=== PATIENT | female | born 1955 | race Caucasian/White ===

== ENCOUNTER 2016-10-08 19:01 | Inpatient (IN) | payer OTHER ==
[~2016-10-08] VITALS: Ht 175.3 cm; Wt 77.1 kg
--- NOTE | ~2016-10-08 | S ---
[facility] [place] [address] SURGICAL PATH RPT PROCEDURE Name: NICOLETTE VÁSQUEZ NICKOLAS Room #: 316-P ADM IN M.R.#: [id number] Admission: 10/08/16 Date of : 51 Discharge: Report #: [id number] Path Case #: [id number] PATHOLOGY REPORT COLLECTION DATE: 10/09/2016 RECEIVED DATE: 10/09/2016 SUBMITTING PHYS: Dr. Ann Marie Soto OTHER PHYS: Dr. Zehra Dao SPECIMEN(S) RECEIVED: A.Peripheral smear * * * * * * * * * * * * FINAL DIAGNOSIS: Peripheral blood smear: - Mild normocytic anemia and mild leukopenia / neutropenia. (see comment). COMMENT: Overall, the peripheral blood has mild normocytic anemia and mild leukopenia / neutropenia. Leukopenia is also partially due to low normal values of multiple cellular subsets. The platelet count is within the normal reference range. The etiology of the findings is unclear based entirely on slide review. Potential causes of normocytic anemia include anemia of chronic disease, treated and/or compensated by vitamin and mineral deficiencies, acute blood loss and dilutional. Potential causes of leukopenia / neutropenia include infections, drug reactions and other inflammatory states. Correlation with clinical history and additional laboratory data is recommended. (CLW:leyda; 10/09/2016) PATHOLOGIST: Dora Joiner M.D. REPORT ELECTRONICALLY SIGNED BY: Dora Joiner M.D. DATE/TIME: 10/09/2016 14:17 * * * * * * * * * * * * MICROSCOPIC DESCRIPTION: CBC Data (10/09/16): WBC 3,300 /uL, RBC 3.53, hemoglobin 10.9 g/dL, hematocrit 31.7%, MCV 90.0 fL, MCH 30.8 pg, MCHC 34.2 g/dL, RDW 13.3%. Platelet count 202,000 /uL. Manual white blood cell differential (10/08/16): segs 59%, lymphs 29%, monos 9%, and eos 3%. Peripheral Blood Smear: Cytomorphological examination of the Alvarez's stained peripheral blood smear confirms the provided data. Red blood cells show mild normocytic anemia and are without significant anisopoikilocytosis. [address] [address] SURGICAL PATH RPT PROCEDURE Name: VÁSQUEZNICOLETTE NICKOLAS Room #: 316-P ADM IN M.R.#: [id number] Admission: 10/08/16 Date of : 51 Discharge: Report #: [id number] Path Case #: [id number] No schistocytes or microspherocytes are seen. White blood cells are mildly decreased in number. They are predominantly segmented neutrophils and are without significant dyspoiesis or significant left shift. Lymphocytes are predominantly small, round, and mature appearing with condensed chromatin and scant cytoplasm with admixed large granular lymphocytes. On scanning, no markedly atypical lymphoid cells are seen. Monocytes are mature. Platelets are adequate in number and mainly normal in morphology with rare larger platelets noted. GROSS PATHOLOGY: Received are two Alvarez stained peripheral blood smears, labeled, Nicolette Vásquez. CLINICAL HISTORY: This is a 60-year-old woman with anemia and leukopenia. Morphologic review of the peripheral blood smears requested by the patient's physician. INITIAL CPT CODE(S): A; 74172 Professional services performed by [facility] at [place] [address] [address], [place] [address] Technical services performed by [facility] at [address] [place] [address], [address], [place] [address]. [facility] [address] [place] [address] PHONE: [phone] DIRECTOR: Johnson Costello M.D. * * * END OF REPORT * * *
[~2016-10-08 19:01] MED LIST: ACYCLOVIR 400400 MG PO; MACROBID 100 M100 M1 PO; NEURONTIN 300300 M1 PO; NEXIUM40 MG PO; PROPRANOLOL 1010 MG PO; PROZAC20 MG PO; REQUIP XL2 MG PO; RESTORIL30 MG PO; TESSALON PERLE100 MG PO; VALIUM5 MG PO
[2016-10-08 19:04] VITALS: BP 131/60
[2016-10-08] MEDS ORDERED: FAMCICLOVIR500 MG PO (19:09)
[2016-10-08 19:31] LABS: HEMATOCRIT 35.8 % (37.0-47.0); HEMOGLOBIN 12.1 gm/dL (12.0-15.0); MANUAL DIFF YES; MCH 30.5 pg (26.0-34.0); MCHC 33.8 g/dL (28.0-37.0); MCV 90.2 fL (80.0-100.0); PLATELET COUNT 228 thou/uL (150-400); RBC 3.97 mil/uL (4.20-5.00); RDW 13.7 % (10.5-14.5)
[2016-10-08 19:40] LABS: CREATININE 1.4 mg/dL (0.6-1.0); POTASSIUM 4.2 mmol/L (3.5-5.1)
[2016-10-08 19:53] LABS: ABSOLUTE NEUTROPHILS 2.4 thou/uL (1.4-8.2); TOTAL CELL COUNT 100
[2016-10-08 19:54] LABS: ANISOCYTOSIS 1+; POLYCHROMASIA OCCASIONAL
[2016-10-08 20:46] LABS: ALBUMIN 3.5 g/dL (3.4-5.0); ALKALINE PHOSPHATASE 64 U/L (46-116); SGOT 26 U/L (15-37); SGPT 24 U/L (30-65); TOTAL BILIRUBIN 0.2 mg/dL (<0.1-1.0); TOTAL PROTEIN 7.3 g/dL (6.4-8.2)
[2016-10-08 20:52] LABS: APTT 24.1 Seconds (24.5-32.8); FIBRINOGEN 406.5 mg/dL (210-360); PROTIME 9.1 Seconds (9.3-11.4)
[2016-10-08 20:55] LABS: DIRECT BILIRUBIN < 0.1 mg/dL (<0.1-0.3)
[2016-10-08 21:26] LABS: URINE BILIRUBIN NEGATIVE (Negative); URINE BLOOD NEGATIVE (Negative); URINE COLOR YELLOW; URINE GLUCOSE-RANDOM* NEGATIVE (Negative); URINE KETONES NEGATIVE (Negative); URINE NITRITE NEGATIVE (Negative); URINE PROTEIN (DIPSTICK) NEGATIVE (Negative); URINE UROBILINOGEN 0.2 E.U./dl (0.2-1.0)
[2016-10-08 21:33] LABS: BACTERIA 1-9 Few /HPF (None Seen); CASTS None Seen /LPF (None Seen); CRYSTALS None Seen /LPF (None Seen); SQUAMOUS 0-3 Few /LPF (0-3); URINE RBC None Seen /HPF (0-2); URINE WBC 0-5 Rare /HPF (0-5)
[2016-10-08 21:44] VITALS: BP 126/68
[2016-10-08 22:31] VITALS: BP 120/66
[2016-10-08 22:50] VITALS: BP 125/62
[2016-10-08] MEDS ORDERED: LEVOTHYROXIN0.125 M1 PO (23:06)
[2016-10-09 04:43] LABS: ABSOLUTE RETIC COUNT 0.0544 10^6/uL; OBSERVED RETIC COUNT 1.55 % (0.6-2.6)
[2016-10-09 04:44] LABS: HEMATOCRIT 31.7 % (37.0-47.0); HEMOGLOBIN 10.9 gm/dL (12.0-15.0); MCH 30.8 pg (26.0-34.0); MCHC 34.2 g/dL (28.0-37.0); RBC 3.53 mil/uL (4.20-5.00); RDW 13.3 % (10.5-14.5); WBC 3.3 thou/uL (4.0-11.0)
[2016-10-09 04:50] VITALS: BP 108/71
[2016-10-09 05:00] LABS: ALBUMIN 2.7 g/dL (3.4-5.0); CALCIUM 8.5 mg/dL (8.5-10.1); CREATININE 1.3 mg/dL (0.6-1.0); POTASSIUM 4.7 mmol/L (3.5-5.1); TOTAL BILIRUBIN 0.3 mg/dL (<0.1-1.0)
[2016-10-09 07:16] VITALS: BP 120/69
[2016-10-09 09:15] LABS: % SATURATION 23 % (20-39); IRON 64 ug/dL (50-170); TIBC 278 ug/dL (250-450); UIBC 214 ug/dL
[2016-10-09 09:46] LABS: FOLIC ACID 5.4 ng/mL (8.6-58.9); TSH 0.044 uIU/mL (0.358-3.740)
[2016-10-09 16:05] VITALS: BP 120/66
[2016-10-09] MEDS ORDERED: MEDROL DOSPAK21 TA1 PO (16:24)
[2016-10-09 16:49] VITALS: BP 120/66
[2016-10-09 22:11] LABS: HIV ANTIBODY Non Reactive (Non Reactive)
[2016-10-12 15:08] LABS: EBV QUANT Negative (Negative)
[2016-10-13 11:09] LABS: A/G RATIO 1.2 (0.7-1.7); ALBUMIN 2.9 g/dL (2.9-4.4); ALPHA 1 0.2 g/dL (0.0-0.4); ALPHA 2 0.7 g/dL (0.4-1.0); BETA 0.9 g/dL (0.7-1.3); GAMMA 0.7 g/dL (0.4-1.8); M-SPIKE Not Observed g/dL (Not Observed)
== END 2016-10-09 17:40 | disposition home or self-care (01) | DRG 813 ==
LOC: ER 19:01 → EROBS 21:19 → 3N 21:19
PROVIDERS: Emergency Medicine; Internal Medicine Hematology & Oncology; Nurse Practitioner Family
DX: R23.3 Spontaneous ecchymoses (principal); N39.0 Urinary tract infection, site not specified; N17.9 Acute kidney failure, unspecified; N18.9 Chronic kidney disease, unspecified; E03.9 Hypothyroidism, unspecified; D72.819 Decreased white blood cell count, unspecified; D64.9 Anemia, unspecified; G25.81 Restless legs syndrome; Z96.651 Presence of right artificial knee joint; Z90.710 Acquired absence of both cervix and uterus; Z88.5 Allergy status to narcotic agent; Z88.0 Allergy status to penicillin; Z82.49 Family history of ischemic heart disease and other diseases of the circulatory system
CPT/HCPCS: 10094

== ENCOUNTER 2017-07-27 15:29 | Inpatient (IN) | payer OTHER ==
[~2017-07-27] VITALS: Ht 175.3 cm; Wt 84.8 kg
--- NOTE | ~2017-07-27 | EKG ---
[address] [address] ELECTROCARDIOGRAM REPORT Name: MIKHAIL BESS Room #: 422-P ADM IN M.R.#: [id number] Admission: 07/27/17 Attend Phys: Juan Ochoa DO Discharge: Date of : 51 Report #: [id number] THIS REPORT FOR: //name// [facility] Test Date: 2017-07-29 Test Time: 18:49:26 Pat Name: MIKHAIL BESS Department: Room: 422 P Gender: F Powder Expert: Maribel GOMES : 1955 Requested By: Tono Coulter Order Number: [id number] MD: Bret Coley Measurements Intervals [place] Rate: 56 P: 56 PA: 177 QRS: 50 QRSD: 79 T: 39 QT: 451 QTc: 436 Interpretive Statements Sinus rhythm Low voltage, precordial leads Compared to ECG 08/26/2015 14:41:15 Low QRS voltage now present Electronically Signed On 07-29-2017 22:00:12 CDT by Bret Coley [email or web address] <ELECTRONICALLY SIGNED> By: Bret Coley MD 07/29/172199 48 48 Bret Coley MD /[facility]
--- NOTE | ~2017-07-27 | HC ---
[facility] [place] [address] CONSULTATION Name: BESSMIKHAIL Room #: 422-P ADM IN M.R.#: [id number] Admission: 07/27/17 Attend Phys: Juan Ochoa DO Discharge: Date of : 51 Report #: [id number] THIS REPORT FOR: //name// CC: Juan Ochoa Arnel Angela DATE OF SERVICE: 07/27/2017 REFERRING PROVIDER: Dr. Juan Ochoa. REASON FOR CONSULT: Abdominal pain. HISTORY OF PRESENT ILLNESS: The patient is a 61-year-old female who presented with a 3-day history of left lower quadrant abdominal pain with fevers, chills and nausea. The patient presented for evaluation, whereby laboratories and a CT scan of the abdomen and pelvis were obtained. The patient's labs were all within normal limits and her CT scan showed focal inflammatory fat stranding along the anterior margin of the sigmoid colon concerning for epiploic appendagitis fat infarct or sigmoid diverticulitis. For that reason, the hospitalist service has admitted the patient and I am asked to evaluate from a surgical standpoint. PAST MEDICAL AND SURGICAL HISTORY: Essential tremor, DJD, prior shingles and mono. She has had a hysterectomy and thyroidectomy. HOME MEDICATIONS: Synthroid, Valium, Nexium, propranolol, Requip, famciclovir, melatonin. ALLERGIES: MORPHINE AND PENICILLIN. FAMILY HISTORY: Reviewed and noncontributory. SOCIAL HISTORY: The patient does not utilize tobacco, alcohol or illicit drugs. REVIEW OF SYSTEMS: GENERAL: The patient denies nocturnal fevers or chills. HEENT: No change in vision, change in hearing. NECK: No swelling or difficulty swallowing. HEART: No chest pain, palpitations. LUNGS: No cough or shortness of breath. ABDOMEN: No nausea, no vomiting. GENITOURINARY: No dysuria or hematuria. ENDOCRINE: No polyuria, polydipsia. HEMATOLOGIC: No history of bleeding or easy bruising. EXTREMITIES: No history weakness or limited range of motion. NEUROLOGIC: No history of syncope or near syncopal episodes. [facility] [place] [address] [place] [address] CONSULTATION Name: BESSMIKHAIL [facility] Room #: 422-P [facility] IN M.R.#: [id number] Admission: 07/27/17 Attend Phys: Juan Ochoa DO Discharge: Date of : 51 Report #: [id number] SKIN AND INTEGUMENT: No history of abnormal lesions or moles. PSYCHIATRIC: No history of anxiety or depression. PHYSICAL EXAMINATION: VITAL SIGNS: Temperature 98.5, pulse 82, respirations 20, blood pressure 107/64. 5 feet 9 inches tall and weighs 190 pounds. GENERAL: Alert, in no acute distress. HEENT: Normocephalic, atraumatic. Pupils equal, round, reactive to light. NECK: Supple, without lymphadenopathy. Trachea midline. HEART: Regular rate and rhythm. LUNGS: Clear to auscultation bilaterally. ABDOMEN: Soft, nondistended, minimally tender to palpation left lower quadrant, but no guarding, rebound or peritoneal signs or symptoms. GENITOURINARY: Normal external female genitalia. EXTREMITIES: No clubbing, cyanosis or edema. NEUROLOGIC: Cranial nerves 2-12 are grossly intact. PSYCHIATRIC: Normal mood and affect. SKIN AND INTEGUMENT: No abnormal lesions or moles. LABORATORY AND X-RAY DATA: CBC shows white blood cell count of 5500, hemoglobin 14.4, platelets 259,000. Creatinine is 1.5. Liver function enzymes are normal. Lactic acid normal at 1.1. Urinalysis negative. CT scan of the abdomen and pelvis as per HPI shows epiploic appendagitis versus fat infarction versus sigmoid diverticulitis. ASSESSMENT AND PLAN: A 61-year-old female with left lower quadrant abdominal pain and normal laboratories with a CT scan showing what I believe likely be epiploic appendagitis or infarction of one of the fatty appendages off of the colon. Less likely would be early sigmoid diverticulitis. The patient has been initiated on IV fluids and IV antibiotics per the primary service and I will initiate Toradol 30 mg IV every 6 hours for an anti-inflammatory benefit. I suspect her slightly elevated creatinine is secondary to dehydration. If this is truly epiploic appendagitis, it is a limited medical issue treated with NSAIDs and usually resolves within 2-3 days' time. Nonetheless, I sincerely appreciate this consult and I will follow closely and leave any further recommendations in the patient's chart as appropriate. <ELECTRONICALLY SIGNED> By: Carmenza Kim MD, FACS 07/28/17 [id number] Carmenza Kim MD, FACS /nt
[~2017-07-27 15:29] MED LIST changes: +FAMCICLOVIR500 MG PO; +LEVOTHYROXIN0.125 M1 PO; +MEDROL DOSPAK21 TA1 PO
[2017-07-27 15:31] VITALS: BP 128/83
[2017-07-27 16:08] LABS: HEMATOCRIT 42.6 % (37.0-47.0); HEMOGLOBIN 14.4 gm/dL (12.0-15.0); MCH 30.2 pg (26.0-34.0); MCHC 33.8 g/dL (28.0-37.0); MCV 89.3 fL (80.0-100.0); PLATELET COUNT 259 thou/uL (150-400); RBC 4.76 mil/uL (4.20-5.00); RDW 14.6 % (10.5-14.5); WBC 5.5 thou/uL (4.0-11.0)
[2017-07-27] MEDS ORDERED: MELATONIN5 M1 PO (16:17)
[2017-07-27] MEDS ORDERED: TYLENOL PM EX-1 EACH PO (16:17)
[2017-07-27 16:22] LABS: CALCIUM 9.4 mg/dL (8.5-10.1); CREATININE 1.5 mg/dL (0.6-1.0)
[2017-07-27 16:27] LABS: ALBUMIN 3.4 g/dL (3.4-5.0); TOTAL BILIRUBIN 0.5 mg/dL (<0.1-1.0); TOTAL PROTEIN 7.6 g/dL (6.4-8.2)
[2017-07-27 16:44] LABS: PLATELET ESTIMATE NORMAL
[2017-07-27 17:36] LABS: URINE BILIRUBIN NEGATIVE (Negative); URINE BLOOD 1+ (Negative); URINE CLARITY CLEAR; URINE COLOR YELLOW; URINE GLUCOSE-RANDOM* NEGATIVE (Negative); URINE KETONES NEGATIVE (Negative); URINE NITRITE-REFLEX NEGATIVE (Negative); URINE PROTEIN (DIPSTICK) NEGATIVE (Negative); URINE SPECIFIC GRAVITY <= 1.005 (1.005-1.035); URINE UROBILINOGEN 0.2 E.U./dl (0.2-1.0)
[2017-07-27 17:37] LABS: URINE LEUKOCYTES-REFLEX TRACE (Negative)
[2017-07-27 17:48] LABS: BACTERIA-REFLEX None Seen /HPF (None Seen); CASTS None Seen /LPF (None Seen); CRYSTALS None Seen /LPF (None Seen); SQUAMOUS 0-3 Few /LPF (0-3); URINE RBC 0-2 Rare /HPF (0-2); URINE WBC-REFLEX 6-15 Few /HPF (0-5)
[2017-07-27 17:50] VITALS: BP 146/84
[2017-07-27 18:46] VITALS: BP 107/64
[2017-07-27 19:26] VITALS: BP 107/61
[2017-07-27] MEDS ORDERED: EFFEXOR XR75 MG PO ×2 (21:01→21:02)
[2017-07-27] MEDS ORDERED: TRAZODONE HCL100 MG PO (21:04)
[2017-07-28 03:55] VITALS: BP 97/56
[2017-07-28 05:58] LABS: HEMATOCRIT 34.3 % (37.0-47.0); MCH 30.1 pg (26.0-34.0); MCHC 33.9 g/dL (28.0-37.0); MCV 88.9 fL (80.0-100.0); PLATELET COUNT 209 thou/uL (150-400); RBC 3.86 mil/uL (4.20-5.00); RDW 14.3 % (10.5-14.5)
[2017-07-28 06:00] LABS: HEMOGLOBIN 11.6 gm/dL (12.0-15.0)
[2017-07-28 06:10] LABS: CALCIUM 8.5 mg/dL (8.5-10.1); CREATININE 1.3 mg/dL (0.6-1.0); MAGNESIUM 2.1 mg/dL (1.8-2.4)
[2017-07-28 07:06] VITALS: BP 94/55
[2017-07-28 07:28] LABS: ABSOLUTE NEUTROPHILS 2.1 thou/uL (1.4-8.2); ATYPICAL LYMPHS 1 %
[2017-07-28 08:30] VITALS: BP 94/55
[2017-07-28 19:25] VITALS: BP 98/58
[2017-07-29 04:35] VITALS: BP 97/52
[2017-07-29 05:50] LABS: ABSOLUTE NEUTROPHILS 2.3 thou/uL (1.4-8.2); BASOPHILS 0.5 % (0.0-2.0); EOSINOPHILS 0.6 % (0.0-3.0); HEMATOCRIT 34.5 % (37.0-47.0); HEMOGLOBIN 11.4 gm/dL (12.0-15.0); LYMPHOCYTES 33.9 % (24.0-44.0); MCH 29.6 pg (26.0-34.0); MCV 89.7 fL (80.0-100.0); MONOCYTES 11.2 % (1.0-8.0); PLATELET COUNT 219 thou/uL (150-400); POLYS 53.8 % (36.0-66.0); RBC 3.85 mil/uL (4.20-5.00); RDW 14.2 % (10.5-14.5); WBC 4.2 thou/uL (4.0-11.0)
[2017-07-29 06:00] LABS: CREATININE 1.5 mg/dL (0.6-1.0)
[2017-07-29 08:46] VITALS: BP 89/43
[2017-07-29 09:22] VITALS: BP 89/43
[2017-07-29 16:38] VITALS: BP 102/58
[2017-07-29 19:29] VITALS: BP 105/57
[2017-07-30 03:57] VITALS: BP 100/55
[2017-07-30 05:53] LABS: HEMATOCRIT 32.6 % (37.0-47.0); HEMOGLOBIN 10.9 gm/dL (12.0-15.0); MCH 29.9 pg (26.0-34.0); MCHC 33.3 g/dL (28.0-37.0); MCV 89.9 fL (80.0-100.0); PLATELET COUNT 203 thou/uL (150-400); RBC 3.63 mil/uL (4.20-5.00); RDW 14.4 % (10.5-14.5); WBC 3.4 thou/uL (4.0-11.0)
[2017-07-30 06:24] LABS: ALBUMIN 2.5 g/dL (3.4-5.0); CALCIUM 8.3 mg/dL (8.5-10.1); CREATININE 1.4 mg/dL (0.6-1.0); MAGNESIUM 2.1 mg/dL (1.8-2.4); POTASSIUM 4.9 mmol/L (3.5-5.1); TOTAL BILIRUBIN 0.2 mg/dL (<0.1-1.0)
[2017-07-30 06:54] LABS: ABSOLUTE NEUTROPHILS 1.8 thou/uL (1.4-8.2); PLATELET ESTIMATE NORMAL
[2017-07-30 07:17] VITALS: BP 103/50
[2017-07-30 08:30] VITALS: BP 103/50
[2017-07-30 15:48] VITALS: BP 124/58
[2017-07-30] MEDS ORDERED: CIPRO500 MG PO (18:14)
[2017-07-30] MEDS ORDERED: FLAGYL500 MG PO (18:14)
[2017-07-30 20:00] VITALS: BP 103/52
[2017-07-31 04:00] VITALS: BP 88/45
[2017-07-31 05:29] LABS: ABSOLUTE NEUTROPHILS 7.8 thou/uL (1.4-8.2); BASOPHILS 0.3 % (0.0-2.0); EOSINOPHILS 0.4 % (0.0-3.0); HEMATOCRIT 34.8 % (37.0-47.0); HEMOGLOBIN 11.8 gm/dL (12.0-15.0); LYMPHOCYTES 13.2 % (24.0-44.0); MCHC 33.9 g/dL (28.0-37.0); MCV 88.7 fL (80.0-100.0); MONOCYTES 8.5 % (1.0-8.0); PLATELET COUNT 235 thou/uL (150-400); POLYS 77.6 % (36.0-66.0); RBC 3.93 mil/uL (4.20-5.00); RDW 14.6 % (10.5-14.5); WBC 10.1 thou/uL (4.0-11.0)
[2017-07-31 05:42] LABS: CALCIUM 8.7 mg/dL (8.5-10.1); CREATININE 1.5 mg/dL (0.6-1.0)
[2017-07-31 06:07] VITALS: BP 106/58
[2017-07-31 08:05] VITALS: BP 100/55
[2017-07-31 11:57] VITALS: BP 100/55
== END 2017-07-31 12:35 | disposition home or self-care (01) | DRG 393 ==
LOC: ER 15:29 → 4E 17:23 → EROBS 17:23 → 4E 18:51
PROVIDERS: Emergency Medicine; Family Medicine; Hospitalist; Nurse Practitioner
DX: K63.89 Other specified diseases of intestine (principal); E43 Unspecified severe protein-calorie malnutrition; N17.9 Acute kidney failure, unspecified; K57.32 Diverticulitis of large intestine without perforation or abscess without bleeding; M19.90 Unspecified osteoarthritis, unspecified site; E86.0 Dehydration; K59.00 Constipation, unspecified; G25.0 Essential tremor; E03.9 Hypothyroidism, unspecified; Z66 Do not resuscitate; R53.82 Chronic fatigue, unspecified; K21.9 Gastro-esophageal reflux disease without esophagitis; I95.9 Hypotension, unspecified; Z96.651 Presence of right artificial knee joint; Z79.2 Long term (current) use of antibiotics; Z79.899 Other long term (current) drug therapy; Z88.6 Allergy status to analgesic agent; Z98.890 Other specified postprocedural states; Z82.49 Family history of ischemic heart disease and other diseases of the circulatory system; Z88.0 Allergy status to penicillin; Z90.710 Acquired absence of both cervix and uterus
CPT/HCPCS: 10084